=== PATIENT | male | born 1970 | race Caucasian/White ===

== ENCOUNTER 2016-08-25 23:52 | Emergency (ER) | payer OTHER ==
--- NOTE | 2016-08-26 07:50 | RAD ---
HAND-RIGHT 3 VIEWS COMPARISON: None HISTORY: Crush injury, right ring finger. FINDINGS: Views: Right hand PA, oblique, lateral Bones: Normal Joints: Normal Soft tissues: Crush injury with deformity of the soft tissues at the end of the right ring finger. IMPRESSION: Crush injury with deformity of the soft tissues at the end of the right ring finger. No fracture.
== END 2016-08-26 02:06 | disposition home or self-care (01) ==
LOC: ED 23:52
DX: S61.214A Laceration without foreign body of right ring finger without damage to nail, initial encounter (principal); W23.0XXA Caught, crushed, jammed, or pinched between moving objects, initial encounter; Y92.22 Religious institution as the place of occurrence of the external cause